=== PATIENT | female | born 1945 | race Caucasian/White ===

== ENCOUNTER 2017-01-13 14:08 | Observation (INO) ==
--- NOTE | 2017-01-13 14:46 | Emergency Department Note ---
Disposition Clinical Impression: UTI (urinary tract infection) Qualifiers: Urinary tract infection type: site unspecified Hematuria presence: without hematuria Qualified Code(s): N39.0 - Urinary tract infection, site not specified Syncope Qualifiers: Syncope type: unspecified Qualified Code(s): R55 - Syncope and collapse Disposition: Admitted As Inpatient Condition: Fair Referrals: NO,PCP [Primary Care Provider] - Time of Disposition: 15:44 General Adult HPI - General Chief complaint: ED Weakness Stated complaint: Sore all over/weakness Time Seen by Provider: 01/13/17 14:13 Source: patient, family Limitations: no limitations Nursing Notes Reviewed: Yes Vital Signs Reviewed: Yes - History of Present Illness HPI Narrative: 71-year-old female who comes in complaining of generalized weakness just not feeling well. Not eating or drinking. Denies focal weakness. Symptoms of been going on for last few days. He should suffered a syncopal episode on and has not felt well since. Pt Subjective Complaint: Generalized weakness Onset (ago): day(s) (4) Pain Scale: 6 Improves with: nothing Worsens with: movement Associated symptoms: Reports: syncope. Denies: chest pain, cough, headaches - Related Data Allergies Allergy/AdvReac Type Severity Reaction Status Date / Time No Known Allergies Allergy Verified 01/13/17 14:11 Constitutional: Reports: fever, chills. Denies: weakness, weight change Eyes: Denies: eye pain, eye discharge, vision change ENT ED: Denies: ear pain, throat pain, dental pain, hearing loss, epistaxis, congestion, dysphagia Cardiovascular: Reports: syncope. Denies: chest pain, palpitations, dyspnea on exertion, edema Respiratory: Denies: cough, dyspnea, wheezes, hemoptysis, stridor Gastrointestinal: Denies: abdominal pain, nausea, vomiting, diarrhea, constipation, hematemesis, melena, hematochezia Genitourinary: Reports: dysuria. Denies: frequency, hematuria, discharge Musculoskeletal: Denies: back pain, neck pain, arthralgia, myalgia Integumentary: Denies: rash, abrasion, lesions Neurological: Denies: headache, weakness, numbness, paresthesias, confusion, abnormal gait, vertigo Psychiatric: Denies: anxiety, depression, suicidal thoughts, homicidal thoughts , auditory hallucinations, visual hallucinations Endocrine: Reports: fatigue Hematological/Lymphatic: Denies: easy bleeding, easy bruising Allergic/Immunologic: Denies: facial swelling, urticaria Past Medical History - Past Medical History Medical history: Reports: cancer - Social History Smoking Status: Never smoker Smokeless Tobacco Status: No Alcohol use: Reports: none Drug use: Reports: none Physical Exam - General Limitations: no limitations General appearance: alert - Head Head exam: atraumatic, normocephalic, normal inspection - Eye Eye exam: Present: normal appearance, PERRL, EOMI - ENT ENT exam: normal exam, normal oropharynx, mucous membranes moist - Neck Neck exam: Present: normal inspection, full ROM, trachea midline - Chest Chest inspection: Present: normal inspection, symmetric chest wall rise - Respiratory Respiratory exam: Present: normal lung sounds bilaterally - Cardiovascular Cardiovascular exam: Present: regular rate, normal rhythm, normal heart sounds - Abdominal Exam Abdominal exam: Present: soft, Non-Tender. Absent: tenderness, distention, guarding, rebound, rigidity - Extremities Exam Extremities exam: Present: normal inspection, full ROM. Absent: tenderness, pedal edema - Expanded Lower Extremity Exam Neurovascular/Tendon exam: Absent: motor deficit, sensory deficit, tendon deficit Gait: not tested/not observed - Back Exam Back exam: Present: normal inspection, full ROM. Absent: tenderness - Neurological Exam Neurological exam: Present: alert, oriented X3. Absent: motor sensory deficit - Psychiatric Psychiatric exam: Present: normal affect, normal mood - Skin Skin exam: Present: warm, dry, intact, normal color Course - Consultations Consultation #1: Discussed with Dr. Cunningham, admit. Time: 15:47 Vital Signs Temperature 100.7 F H 01/13/17 14:09 Pulse Rate 79 01/13/17 14:09 Respiratory Rate 18 01/13/17 14:09 Blood Pressure 123/71 01/13/17 14:09 O2 Sat by Pulse Oximetry 100 01/13/17 14:09 Temperature 100.7 F H 01/13/17 14:09 Pulse Rate 88 01/13/17 14:22 Respiratory Rate 14 01/13/17 14:22 Blood Pressure 115/57 01/13/17 14:22 O2 Sat by Pulse Oximetry 98 01/13/17 14:22 Oxygen Delivery Oxygen Delivery Room Air Medical Decision Making - Lab Data Lab results reviewed: Yes I reviewed the patient's lab results. Result diagrams: 01/13/17 15:12 01/13/17 15:12 Lab Results 01/13/17 01/13/17 01/13/17 Range/Units 15:04 15:12 15:12 WBC 11.5 H (4.3-11.1) K/mcL RBC 4.01 (3.82-4.97) M/mcL Hgb 11.8 (11.5-15.4) g/dL Hct 35.4 (35.3-44.9) % MCV 88.3 (83.0-100.0) fL MCH 29.4 (28.0-33.3) pg MCHC 33.3 (31.6-35.5) g/dL RDW 13.0 (11.5-14.5) % Plt Count 249 (140-400) K/mcL MPV 9.7 (9.4-12.4) fL Immature Gran % 0.4 (0-4) % Seg Neutrophils % 78.2 % Lymphocytes % 11.4 % Monocytes % 9.7 % Eosinophils % 0.1 % Basophils % 0.2 % Neutrophils # 9.0 H (1.6-8.9) K/mcL Lymphocytes # 1.3 (0.6-4.6) K/mcL Monocytes # 1.1 (0.0-1.3) K/mcL Eosinophils # 0.0 (0.0-0.6) K/mcL Basophils # 0.0 (0.0-0.2) K/mcL Sodium 135 L (136-145) mEq/L Potassium 4.1 (3.5-4.5) mEq/L Chloride 101 (98-109) mEq/L Carbon Dioxide 24 (19-29) mEq/L BUN 11 (7-20) mg/dL Creatinine 0.90 (0.57-1.11) mg/dL Est GFR ( Amer) > 60 (> 60) Est GFR (Non-Af Amer) > 60 (> 60) BUN/Creatinine Ratio 12 (6-26) Glucose 127 H (70-99) mg/dL Calculated Osmolality 281 (280-300) Lactic Acid (0.5-2.2) mmol/L Calcium 9.2 (8.6-10.8) mg/dL Total Bilirubin 1.1 (0.2-1.2) mg/dL AST 19 (5-34) Units/L ALT 26 (0-55) Units/L Alkaline Phosphatase 96 (38-126) Units/L Troponin I (0-0.03) ng/mL Serum Total Protein 7.8 (6.0-8.3) g/dL Albumin 3.4 L (3.5-5.0) g/dL Globulin 4.4 H (2.4-3.5) g/dL Albumin/Globulin Ratio 0.8 L (1.1-2.2) Urine Color Dark Yellow (Yellow) Urine Clarity Turbid A (Clear) Urine pH 6.0 (5.0-8.0) pH Units Ur Specific [place] 1.016 (1.010-1.025) Urine Protein 100 H (Neg-Trace) mg/dL Urine Glucose (UA) Normal (Normal) mg/dL Urine Ketones Negative (Negative) mg/dL Urine Blood Small H (Negative) Urine Nitrite Positive A (Negative) Urine Bilirubin Negative (Negative) Urine Urobilinogen 2.0 H (Normal) mg/dL Ur Leukocyte Esterase Large H (Negative) Urine Microscopic RBC 5-15 H (0-3) per hpf Urine Microscopic WBC TNTC H (0-3) per hpf Ur Squamous Epith Cells Many H (None-Few) per lpf Urine Bacteria Many H (None-Few) per hpf Hyaline Casts None Seen (None-Few) per lpf Ur Culture Indicated? YES A (NO) 01/13/17 01/13/17 Range/Units 15:12 15:12 WBC (4.3-11.1) K/mcL RBC (3.82-4.97) M/mcL Hgb (11.5-15.4) g/dL Hct (35.3-44.9) % MCV (83.0-100.0) fL MCH (28.0-33.3) pg MCHC (31.6-35.5) g/dL RDW (11.5-14.5) % Plt Count (140-400) K/mcL MPV (9.4-12.4) fL Immature Gran % (0-4) % Seg Neutrophils % % Lymphocytes % % Monocytes % % Eosinophils % % Basophils % % Neutrophils # (1.6-8.9) K/mcL Lymphocytes # (0.6-4.6) K/mcL Monocytes # (0.0-1.3) K/mcL Eosinophils # (0.0-0.6) K/mcL Basophils # (0.0-0.2) K/mcL Sodium (136-145) mEq/L Potassium (3.5-4.5) mEq/L Chloride (98-109) mEq/L Carbon Dioxide (19-29) mEq/L BUN (7-20) mg/dL Creatinine (0.57-1.11) mg/dL Est GFR ( Amer) (> 60) Est GFR (Non-Af Amer) (> 60) BUN/Creatinine Ratio (6-26) Glucose (70-99) mg/dL Calculated Osmolality (280-300) Lactic Acid 1.5 (0.5-2.2) mmol/L Calcium (8.6-10.8) mg/dL Total Bilirubin (0.2-1.2) mg/dL AST (5-34) Units/L ALT (0-55) Units/L Alkaline Phosphatase (38-126) Units/L Troponin I 0.00 (0-0.03) ng/mL Serum Total Protein (6.0-8.3) g/dL Albumin (3.5-5.0) g/dL Globulin (2.4-3.5) g/dL Albumin/Globulin Ratio (1.1-2.2) Urine Color (Yellow) Urine Clarity (Clear) Urine pH (5.0-8.0) pH Units Ur Specific [place] (1.010-1.025) Urine Protein (Neg-Trace) mg/dL Urine Glucose (UA) (Normal) mg/dL Urine Ketones (Negative) mg/dL Urine Blood (Negative) Urine Nitrite (Negative) Urine Bilirubin (Negative) Urine Urobilinogen (Normal) mg/dL Ur Leukocyte Esterase (Negative) Urine Microscopic RBC (0-3) per hpf Urine Microscopic WBC (0-3) per hpf Ur Squamous Epith Cells (None-Few) per lpf Urine Bacteria (None-Few) per hpf Hyaline Casts (None-Few) per lpf Ur Culture Indicated? (NO) - Radiology Data Radiology results reviewed: Yes I reviewed the patient's radiology results. Chest X-Ray 01/13/17 14:33 IMPRESSION: No acute cardiopulmonary process. Mild emphysema. Old granulomatous disease. D/ / 01/13/2017 15:07:52 Sanju Benson MD / vita Interpreting Provider: Sanju Benson MD Head CT 01/13/17 14:34 IMPRESSION: No acute intracranial abnormality. Mild parenchymal volume loss. Minimal chronic microvascular disease. D/ / Jack Candelario MD / Jack Candelario MD Interpreting Provider: Jack Candelario MD - EKG Data EKG #1 EKG attestation: Yes I reviewed and interpreted this EKG. EKG shows normal: sinus rhythm Rate: normal Rhythm: NSR Interpretation: no acute changes NIH Stroke Scale - Level of Consciousness LOC: Alert - LOC Questions LOC Questions: Answers both correctly - LOC Commands LOC Commands: Performs both correctly - Best Gaze Best Gaze: Normal - Visual Visual: No visual loss - Facial Palsy Facial Palsy: Normal - Motor Arms Motor Arm-Left: No drift for 10 seconds Motor Arm-Right: No drift for 10 seconds - Motor Legs Motor Leg-Left: No drift for 5 seconds Motor Leg-Right: No drift for 5 seconds - Limb Ataxia Limb Ataxia: Normal, No Ataxia - Sensory Sensory: Normal - Best Language Best Language: No aphasia - Dysarthria Dysarthria: Normal - Extinction and Inattention Extinction and Inattention: Normal - NIHSS Total Score NIHSS Total Score: 0
[2017-01-13 15:13] LABS: Bilirubin,Urine Negative (Negative); Blood,Urine Small (Negative); Clarity,Urine Turbid (Clear); Color,Urine Dark Yellow (Yellow); Glucose,Urine (UA) Normal (Normal); Ketones,Urine Negative (Negative); Leukocyte Esterase,Urine Large (Negative); Nitrite,Urine Positive (Negative); Protein,Urine 100 mg/dL (Neg-Trace); Specific Gravity,Urine 1.016 (1.010-1.025)
[2017-01-13 15:15] LABS: Bacteria,Urine Many per hpf (None-Few); Hyaline Casts,Urine None Seen per lpf (None-Few); Squamous Epithelial Cell,Urine Many per lpf (None-Few); WBC,Urine TNTC per hpf (0-3)
[2017-01-13 15:20] LABS: Basophils % 0.2 %; Eosinophils % 0.1 %; Hematocrit 35.4 % (35.3-44.9); Hemoglobin 11.8 g/dL (11.5-15.4); Immature Granulocytes % 0.4 % (0-4); Lymphocytes # 1.3 K/mcL (0.6-4.6); Lymphocytes % 11.4 %; Mean Corpuscular HGB Conc 33.3 g/dL (31.6-35.5); Mean Corpuscular Hemoglobin 29.4 pg (28.0-33.3); Mean Corpuscular Volume 88.3 fL (83.0-100.0); Mean Platelet Volume 9.7 fL (9.4-12.4); Monocytes # 1.1 K/mcL (0.0-1.3); Monocytes % 9.7 %; Platelet Count 249 K/mcL (140-400); Red Blood Count 4.01 M/mcL (3.82-4.97); Segmented Neutrophils % 78.2 %
[2017-01-13 15:34] LABS: Alanine Aminotransferase 26 Units/L (0-55); Albumin 3.4 g/dL (3.5-5.0); Albumin/Globulin Ratio 0.8 (1.1-2.2); Alkaline Phosphatase 96 Units/L (38-126); Aspartate Amino Transferase 19 Units/L (5-34); BUN/Creatinine Ratio 12 (6-26); Bilirubin,Total 1.1 mg/dL (0.2-1.2); Blood Urea Nitrogen 11 mg/dL (7-20); Calcium 9.2 mg/dL (8.6-10.8); Carbon Dioxide 24 mEq/L (19-29); Chloride 101 mEq/L (98-109); Globulin 4.4 g/dL (2.4-3.5); Glucose 127 mg/dL (70-99); Osmolality,Calculated 281 (280-300); Potassium 4.1 mEq/L (3.5-4.5); Sodium 135 mEq/L (136-145); Total Protein 7.8 g/dL (6.0-8.3); eGFR For African Americans > 60 (> 60); eGFR For Non-African Americans > 60 (> 60)
--- NOTE | 2017-01-13 16:14 | Internal Med History&Physical ---
Date of Encounter: 01/13/17 Time of Encounter: 16:00 Assessment and Plan (1) Syncope Current visit: Yes Status: Acute Patient with syncopal episode. Most likely from orthostasis. We will check orthostatic blood pressure. IV hydration. Monitor vital signs closely. Qualifiers: Syncope type: unspecified Qualified Code(s): R55 - Syncope and collapse (2) UTI (urinary tract infection) Current visit: Yes Status: Acute Patient also has acute cystitis. We will treat with IV antibiotics. Follow urine cultures. Qualifiers: Urinary tract infection type: acute cystitis Hematuria presence: without hematuria Qualified Code(s): N30.00 - Acute cystitis without hematuria (3) Protein calorie malnutrition Current visit: Yes Status: Acute Poor appetite and malnutrition. We will consult dietitian for recommendations. Internal Medicine - H&P: HPI Chief complaint: Generalized weakness, syncopal episode, soreness all over Admitted From: Emergency Dept Plans for Post Hospital Care: Home History of present illness: Ms. Carvalho is a 71 year old female with history of thyroid disease and remote ovarian cancer presented to the ER with complaints of generalized weakness, lack of appetite, syncopal episode 2 days back without any prodromal symptoms. She denies any dysuria or hematuria. She had an episode of nausea and vomiting last night. She feels dizzy on standing. Also has low-grade fever. No diarrhea. No chest pain, palpitations, cough or shortness of breath. She complains of some suprapubic pain. Past Med Surg Social Fam HX - Past Medical History Attestation: Yes The following information was validated with the patient. Source: patient Medical history: cancer, thyroid disease - Social History Smoking Status: Never smoker Smokeless Tobacco Status: No Alcohol use: none Drug use: none - Additional Family History Additional family history: Reviewed and found to be noncontributory at this time Internal Medicine - H&P: Meds No Known Home Drugs 01/13/17 [History] Allergies No Known Allergies Allergy (Verified 01/13/17 14:11) All Systems PM: A 10-system review of systems was performed and is negative for pertinent findings except as documented above in the HPI. - Constitutional Constitutional: anorexia, fever(s), no chills, no night sweats - EENT Eyes: no change in vision, no discharge, no pain, no photophobia Ears: no ear discharge, no ear pain, no tinnitus Nose, mouth and throat: no dysphagia, no nasal discharge, no neck pain, no sore throat - Cardiovascular Cardiovascular ROS IM: lightheadedness, no chest pain, no diaphoresis, no dyspnea, no palpitations, no syncope - Respiratory Respiratory: no cough, no dyspnea, no wheezing, no excessive phlegm production - Gastrointestinal Gastrointestinal: no abdominal pain, no diarrhea, no hematemesis, no hematochezia, no melena, no nausea, no vomiting - Genitourinary Genitourinary: no change in urinary stream, no dysuria, no flank pain, no hematuria - Musculoskeletal Musculoskeletal ROS IM: no numbness, no tingling - Integumentary Integumentary IM: no rash, no unusual bruising - Neurological Neurological ROS: no confusion, no convulsions, no focal weakness, no numbness, no tingling, no tremor(s) - Hematologic/Lymphatic Hematologic/Lymphatic: no easy bruising - Constitutional Vitals: Temp Pulse Resp BP Pulse Ox 100.7 F H 87 16 113/51 94 L 01/13/17 14:09 01/13/17 15:50 01/13/17 15:50 01/13/17 15:50 01/13/17 15:50 General appearance: Present: cooperative, mild distress, A&O X 3, answers questions appropriately - Eye Eye exam: Present: PERRL, conjuntiva pink, sclera anicteric Pupils: Present: PERRL - ENT ENT exam: Present: mucous membranes dry - Neck Neck exam general surgery: Present: supple, trachea midline. Absent: lymphadenopathy - Respiratory Respiratory exam: Present: CTAB. Absent: accessory muscle use, rales, rhonchi, wheezes - Cardiovascular Cardiovascular exam: Present: RRR, +S1, +S2. Absent: diastolic murmur, gallop, rubs, systolic murmur - Extremities Exam Extremities exam: Present: warm, radial pulses palpable and symetrical. Absent : calf tenderness, cyanotic, pedal edema - Neurological Exam Neurological exam: Present: CN II-XII intact, oriented X3, no focal deficits. Absent: facial droop, speech deficit - Skin Skin exam: Present: dry, intact Internal Med - H&P Results - Labs CBC & Chem 7: 01/13/17 15:12 01/13/17 15:12 - Impressions Impressions Chest X-Ray 01/13/17 14:33 IMPRESSION: No acute cardiopulmonary process. Mild emphysema. Old granulomatous disease. D/ / 01/13/2017 15:07:52 Sanju Benson MD / vita Interpreting Provider: Sanju Benson MD Head CT 01/13/17 14:34 IMPRESSION: No acute intracranial abnormality. Mild parenchymal volume loss. Minimal chronic microvascular disease. D/ / Jack Candelario MD / Jack Candelario MD Interpreting Provider: Jack Candelario MD - Attending Attestation This document has been at least partially created by [employer] recognition technology by Dr. Cunningham. Errors in grammar, wording or other phrases may exist. If errors are found after the documentation is signed, they will be addressed individually in the addendum section of this document when appropriate.
[2017-01-13] MEDS ORDERED: Acetaminophen 325 MG TABLET PO PRN (16:20)
[2017-01-13] MEDS ORDERED: Naloxone 0.4 MG/ML INJ IVP PRN (16:20)
[2017-01-13 17:29] LABS: Thyroid Stimulating Hormone 1.246 mcIU/mL (0.350-4.840)
[2017-01-13] MEDS: 0.9 % Sodium Chloride 1,000 ML IVC SCH (18:38)
[2017-01-13] MEDS: *HR* Heparin 5,000 UNIT/ML VIAL SQ SCH (18:38)
[2017-01-14] MEDS: 0.9 % Sodium Chloride 1,000 ML IVC SCH ×2 (02:46→16:19)
[2017-01-14] MEDS: *HR* Heparin 5,000 UNIT/ML VIAL SQ SCH ×2 (06:06→16:23)
[2017-01-14 07:35] LABS: Acinetobacter baumannii by PCR Not Detected (Not Detect); Candida albicans by PCR Not Detected (Not Detect); Candida glabrata by PCR Not Detected (Not Detect); Candida krusei by PCR Not Detected (Not Detect); Candida parapsilosis by PCR Not Detected (Not Detect); Candida tropicalis by PCR Not Detected (Not Detect); Enterococcus by PCR Not Detected (Not Detect); Escherichia coli by PCR ***DETECTED*** (Not Detect); Klebsiella oxytoca by PCR Not Detected (Not Detect); Klebsiella pneumoniae by PCR Not Detected (Not Detect); Pseudomonas aeruginosa by PCR Not Detected (Not Detect); Serratia marcescens by PCR Not Detected (Not Detect); Staphylococcus aureus by PCR Not Detected (Not Detect); Streptococcus agalactiae(B)PCR Not Detected (Not Detect); Streptococcus by PCR Not Detected (Not Detect); Streptococcus pneumoniae PCR Not Detected (Not Detect); Streptococcus pyogenes (A) PCR Not Detected (Not Detect); blaKPC Carbapenem-Resist Gene Not Detected (Not Detect)
[2017-01-14] MEDS: Piperacillin/Tazobactam 3.375 GM in D5% in Water (Mini-Bag+) 100 ML IVPB SCH ×2 (10:21→18:35)
--- NOTE | 2017-01-14 11:23 | Internal Med Progress Note ---
Date of Encounter: 01/14/17 Time of Encounter: 09:30 - Assessment and plan (1) Syncope Current Visit: Yes Status: Acute Assessment and plan: Pt had sycopal episode [address] [facility]. Pt did not fall, someone in line behind her caught her, so she avoided injury. She was standing in line and became lightheaded and had some nausea prior to incident. She states that she has not had episodes like this in the past. Most likely due to orthostatic hypotension and/or poor po intake. Pt has been hypotensive since arrival and is on fall precautions. She is getting IV fluids, as well. CT done in the ER shows no acute intracrainal abnormality, mild parenchymal volume loss, and minimal chronic microvascular disease. Monitor VS Monitor labs IVF 0.9NS @ 125ml/hour Treating UTI Nutrition consult Qualifiers: Syncope type: unspecified Qualified Code(s): R55 - Syncope and collapse (2) UTI (urinary tract infection) Current Visit: Yes Status: Acute Assessment and plan: Pt being treated for UTI, urine yesterday TNTC WBC, Lg amt leukocyte esterase, and many bacteria. IV Cipro and Zosyn started in ED. Will continue. Preliminay urine culture growing Gram neg rods. Sensitivity pending. Pt denies recent urinary symptoms, but reports nausea and vomiting, fever, syncopal episode, and RLQ pain for 1 week. Continue IV atb Continue IVF Pain control if needed. Sensitivity pending Qualifiers: Urinary tract infection type: acute cystitis Hematuria presence: without hematuria Qualified Code(s): N30.00 - Acute cystitis without hematuria (3) Protein calorie malnutrition Current Visit: Yes Status: Acute Assessment and plan: Pt has had a 10lb weight loss over short, but unknown amount of time. She states that she doesn't have much of an appetite. Nutrition consult (4) Weight loss Current Visit: Yes Status: Acute Assessment and plan: Pt reports 10# weight loss. States that she hasn't weighed herself recently, but does remember weighing 104#, now she is 94#. Weight loss is unintentional, she states that she doesn't have much of an appetite. Plan as above (5) RLQ abdominal pain Current Visit: Yes Status: Acute Assessment and plan: Pt reports RLQ pain for 1 week. STates that pain is constant and describes as an ache. She has infrequent BM, however, even after she does, the pain does not resolve. Due to concern over weight loss and prior history of abd surgery and ovarian cancer, I ordered a CT abd/pelvis was negative and showed ho acute findings to explain her weight loss. Pt did have a BM today. Pain control Follow up with GI outpatient if warranted if pain does not resolve after UTI treatment. - Time Spent With Patient less than 15 minutes - Subjective Interval history: Pt reports syncopal episode at [facility] 2days ago. Pt states that she did not fall, someone behind her caught her. She reports approximately 1 week history of fatigue, RLQ ache, and n/v and fever. She denies urinary s/s or flank pain. She reports a 10# weight loss recently, however, she cannot remember when she weighed herself last at home. - Constitutional Vitals: Temp Pulse Resp BP Pulse Ox 98.0 F 85 16 94/47 100 01/14/17 08:15 01/14/17 08:15 01/14/17 08:15 01/14/17 08:15 01/14/17 08:15 General appearance: Present: cooperative, mild distress, A&O X 3, answers questions appropriately - Head Head exam: Present: normal inspection - Eye Eye exam: Present: normal appearance, conjuntiva pink - ENT ENT exam: Present: mucous membranes moist, normal exam - Neck Neck exam general surgery: Present: normal inspection. Absent: lymphadenopathy , tenderness - Respiratory Respiratory exam: Present: CTAB. Absent: chest wall tenderness, decreased breath sounds, rales, rhonchi, wheezes - Cardiovascular Cardiovascular exam: Present: RRR, +S1, +S2. Absent: diastolic murmur, systolic murmur - GI/Abdominal GI/Abdominal exam: Present: normal bowel sounds, soft, tenderness. Absent: hepatomegaly, pulsatile mass, rigid Additional comments: Tender to palpation in RLQ - Extremities Exam Extremities exam: Present: full ROM, normal capillary refill, normal inspection , warm, radial pulses palpable and symetrical. Absent: mottling, pedal edema, tenderness - Back Exam Back exam: Present: normal inspection. Absent: CVA tenderness (L), CVA tenderness (R) - Neurological Exam Neurological exam: Present: alert, oriented X3, no focal deficits, strengths equal and symetr throughout Internal Medicine: Result - Labs CBC & Chem 7: 01/13/17 15:12 01/13/17 15:12 - Impressions Impressions Abdomen/Pelvis CT 01/14/17 09:31 IMPRESSION: No acute findings within the abdomen or pelvis or etiology to explain the patient's sepsis and weight loss. D/ /14/2017 11:01:47 Rogers Webber MD / aguilar Interpreting Provider: Rogers Webber MD Consult Discharge Plan - Plan Referrals: NO,PCP [Primary Care Provider] -
--- NOTE | 2017-01-14 13:04 | Electrocardiograph Report ---
[place] [id number] Test Date: 2017-01-13 Pat Name: Lety Carvalho Department: 105 Room: 3B13 Gender: F [employer] Supervisor: : 1945 Requested By: Sumanth Mayorga Order Number: [id number] Reading MD: Garrett Leiva Measurements Intervals [place] Rate: 89 P: 79 ME: 157 QRS: 84 QRSD: 86 T: 81 QT: 337 QTc: 383 Interpretive Statements SINUS RHYTHM Electronically Signed On 01-14-2017 13:03:34 EDT by Garrett Leiva
[2017-01-15] MEDS: 0.9 % Sodium Chloride 1,000 ML IVC SCH ×3 (00:07→07:00)
[2017-01-15 04:35] LABS: Hematocrit 29.4 % (35.3-44.9); Mean Corpuscular HGB Conc 33.7 g/dL (31.6-35.5); Mean Corpuscular Volume 89.1 fL (83.0-100.0); Mean Platelet Volume 10.5 fL (9.4-12.4); Neutrophils # 3.3 K/mcL (1.6-8.9); Platelet Count 226 K/mcL (140-400); Red Cell Distribution Width 12.8 % (11.5-14.5)
[2017-01-15 04:52] LABS: BUN/Creatinine Ratio 10 (6-26); Blood Urea Nitrogen 8 mg/dL (7-20); Carbon Dioxide 22 mEq/L (19-29); Chloride 106 mEq/L (98-109); Glucose 91 mg/dL (70-99); Osmolality,Calculated 280 (280-300); Potassium 3.5 mEq/L (3.5-4.5); Sodium 136 mEq/L (136-145); eGFR For African Americans > 60 (> 60); eGFR For Non-African Americans > 60 (> 60)
[2017-01-15 05:30] LABS: Hemoglobin 9.9 g/dL (11.5-15.4)
[2017-01-15 06:08] LABS: Eosinophils # 0.3 K/mcL (0.0-0.6); Lymphocytes # 1.5 K/mcL (0.6-4.6); Monocytes # 1.3 K/mcL (0.0-1.3); Platelet Estimate Normal (Normal)
[2017-01-15] MEDS: *HR* Heparin 5,000 UNIT/ML VIAL SQ SCH (06:23)
[2017-01-15] MEDS: Piperacillin/Tazobactam 3.375 GM in D5% in Water (Mini-Bag+) 100 ML IVPB SCH ×2 (09:19)
[2017-01-15 12:12] VITALS: BP 106/64
--- NOTE | 2017-01-15 12:26 | Discharge Summary ---
Date of Encounter: 01/15/17 Time of Encounter: 08:30 - Discharge Diagnosis (1) UTI (urinary tract infection) Priority: Primary Status: Acute Comments: Pt states that her RLQ pain that she has had for about a week is gone now. Pt states that she feels better and is ready to go home today. Leukocytosis has resolved and she has remained afebrile. She will be sent home on Macrobid 100mg po bid for 7 days. Qualifiers: Urinary tract infection type: acute cystitis Hematuria presence: without hematuria Qualified Code(s): N30.00 - Acute cystitis without hematuria (2) Syncope Priority: Secondary Status: Acute Comments: Most likely syncopal event was related to hypovolemia and urinary tract infection. Pt has denied feeling dizzy or lightheaded during exams. Orthostatic VS were not indicative of orthostasis, however, she is borderline hypotensive. pt states that is normal for her. We discussed the importance of adequate fluid intake and changing positions slowly. Pt does not take antihypertensives at home. Qualifiers: Syncope type: unspecified Qualified Code(s): R55 - Syncope and collapse (3) Protein calorie malnutrition Priority: Secondary Status: Acute Comments: I did consult nutrition. Daughter states that she will attempt to get patient to drink nutritional shakes once patient is home. (4) Weight loss Priority: Secondary Status: Acute Comments: Patient states she has lost about 10 pounds in an unknown amount of time. At this time there is no known cause of them patient has not been eating well at home. Daughter states that she will try to get patient to treat nutritional shakes at home. Patient should follow-up with primary care physician for more thorough evaluation. (5) RLQ abdominal pain Priority: Secondary Status: Acute Comments: Patient had right lower quadrant pressure for approximately 1 week prior to admission. 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 CT was negative and today patient states that his pain has resolved completely. - Discharge Medications Prescriptions: Nitrofurantoin (BID) [Macrobid] 100 mg PO BID #14 capsule Home Medications: Calcium Carbonate [Tums] 1,000 mg PO QID tab.chew 01/15/17 [Rx] Nitrofurantoin (BID) [Macrobid] 100 mg PO BID #14 capsule 01/15/17 [Rx] Allergies/Adverse Reactions: Allergies No Known Allergies Allergy (Verified 01/13/17 14:11) Procedures/tests Complete & Pending: Procedures Performed prior 72 hours Category Date Time Status CT abd pelvis wo no iv no oral [CT] Routine Cat Scan 01/14/17 09:31 Completed Date of admission: 01/13/17 15:57 Primary care physician: PCP NO Consults: 01/13/17 18:03 Consult to Occupational Therapy [CONS] Routine Comment: Evaluate, develop and implement POC Consult to Physical Therapy [CONS] Routine Comment: Evaluate, develop and implement POC 01/14/17 09:36 Consult to Speech Therapy [CONS] Routine Comment: Evaluate, develop and implement POC Reason for Consult: daughter states patient has swallowing problems. None observed by RN Call Completed: No 01/14/17 12:30 Consult to Nutrition [CONS] Routine Comment: Consulting Provider: NUTRITION Reason for Dietary Consult: Supplemental Nutrition Discharging clinician: Chelsea Keller Anticipated date of discharge: 01/15/17 - Patient Status Disposition: Home, Self-Care Condition: Good Functional capacity at discharge: independent ambulation Overall status at discharge: patient is progressing back to baseline - Discharge Instructions Follow Up With: NO,PCP [Primary Care Provider] - Forms: ED Satisfaction Letter Additional Instructions: Please drink at least 64 oz of water daily Take your prescription as written and until it is gone Return for any problems or concerns or change in your condition - Diet and Activity Activity: resume usual activities as tolerated Diet: advance to your usual diet Hospital course: Ms. Carvalho is a 71 year old female who came to the emergency department on Sunday for syncopal episode at [facility] the day before. Patient states that she was standing in line had a syncopal episode but did not hit the ground because someone behind her caught her. Patient admitted for urinary tract infection placed on Cipro and Zosyn IV and IV fluids. Yesterday she reported right lower quadrant pain for approximately 1 week. 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 CAT scan was negative. Today patient states that she feels much better, abdominal pain is gone, and that she is ready to go home. Leukocytosis has resolved and patient has been afebrile. Patient has has been borderline hypotensive and I discussed with patient adequate hydration and changing positions slowly to avoid falls and syncopal episodes. Patient is stable for discharge. - Time Spent with Patient Total time spent providing and/or coordinating discharge services: Less than 30 minutes - Constitutional Vitals: Temp Pulse Resp BP Pulse Ox 98.0 F 76 16 106/64 100 01/15/17 11:07 01/15/17 11:07 01/15/17 11:07 01/15/17 12:10 01/15/17 11:07 General appearance: Present: cooperative, mild distress, A&O X 3, no acute distress, answers questions appropriately - Head Head exam: Present: normal inspection - ENT ENT exam: Present: mucous membranes moist, normal exam - Neck Neck exam general surgery: Present: normal inspection. Absent: lymphadenopathy , tenderness - Respiratory Respiratory exam: Present: CTAB. Absent: chest wall tenderness, decreased breath sounds, rales, respiratory distress, rhonchi, wheezes - Cardiovascular Cardiovascular exam: Present: RRR, +S1, +S2. Absent: diastolic murmur, systolic murmur - GI/Abdominal GI/Abdominal exam: Present: normal bowel sounds, soft. Absent: hepatomegaly, tenderness - Extremities Exam Extremities exam: Present: normal capillary refill, warm, radial pulses palpable and symetrical. Absent: pedal edema, tenderness - Neurological Exam Neurological exam: Present: alert, oriented X3, no focal deficits, strengths equal and symetr throughout. Absent: facial droop
== END 2017-01-15 14:32 | disposition home or self-care (01) ==
LOC: EMEROO 14:08 → 3BNU 14:08
PROVIDERS: ADMIT Internal Medicine; ATTEND Registered Nurse